=== PATIENT | male | born 1965 | race Caucasian/White ===

== ENCOUNTER 2016-08-18 14:09 | Emergency (ER) | payer OTHER ==
[~2016-08-18] VITALS: Ht 177.8 cm; Wt 136.4 kg
[2016-08-18 15:13] LABS: BASOPHIL COUNT 0.1 K/uL (0-0.1); EOSINOPHIL (%) 3.7 % (0-5); EOSINOPHIL COUNT 0.3 K/uL (0-0.3); HEMATOCRIT 51.5 % (38.0-50.0); IMMATURE GRANULOCYTE (%) 0.3 % (0.0-0.7); INSTRUMENT ABS NEUTROPHIL CT 5.6 K/uL; LYMPHOCYTE COUNT 2.2 K/uL (1.0-2.8); MCH 30.1 PG (29.0-34.0); MCHC 33.4 G/DL (30.0-36.0); MCV 90.2 FL (86-99); MEAN PLAT.VOLUME 9.5 uM^3 (9.0-12.4); MONOCYTE (%) 7.5 % (3-12); MONOCYTE COUNT 0.7 K/uL (0-0.8); NEUTROPHIL (%) 63.1 % (45-76); NEUTROPHIL COUNT 5.6 K/uL (1.8-6.4); PLATELET COUNT 202 K/uL (156-360); RBC DIS.WIDTH-CV 12.6 % (11.8-14.6); RBC DIS.WIDTH-SD 41.6 % (39-53); RED BLOOD COUNT 5.71 M/uL (4.00-5.50); WHITE BLOOD COUNT 8.9 K/uL (4.1-10.2)
[2016-08-18 15:21] LABS: CHLORIDE 107 mEq/L (99-109); POTASSIUM 4.1 mEq/L (3.7-5.4); SODIUM 138 mEq/L (136-147)
[2016-08-18 15:23] LABS: GLUCOSE 82 mg/dL (70-99); INTER. NORMALIZED RATIO 1.1; PROTHROMBIN TIME 11.2 (9.2-11.2); PTT 28.5 (25-32)
[2016-08-18 15:24] LABS: ANION GAP 7 MEQ/L (2-14)
[2016-08-18 15:25] LABS: TOTAL BILIRUBIN 0.8 mg/dL (0.0-1.0)
[2016-08-18 15:26] LABS: ALKALINE PHOSPHATASE 41 IU/L (3-129); GFR ESTIMATE (CALCULATED) 43 mL/min/
[2016-08-18 15:28] LABS: UREA NITROGEN (BUN) 18 mg/dL (9-23)
[2016-08-18 17:50] VITALS: BP 130/93
== END 2016-08-18 18:05 | disposition home or self-care (01) ==
LOC: EME 14:09
PROVIDERS: Emergency Medicine
DX: R10.9 Unspecified abdominal pain (principal); I10 Essential (primary) hypertension; E11.9 Type 2 diabetes mellitus without complications; Z87.442 Personal history of urinary calculi
CPT/HCPCS: 74174; 80053; 85025; 85610; 85730; 93005; 99281; 99284; J7030